=== PATIENT | female | born 1940 | race Caucasian/White ===

== ENCOUNTER 2019-08-11 11:16 | Emergency (ER) | payer MEDICARE ==
[2019-08-11] MEDS ORDERED: IPRATROPIUM/ALBUTEROL 3 ML VIAL NEB ONE ×4 (11:25→12:12)
[2019-08-11] MEDS ORDERED: methylPREDNISolone SODIUM SUC 125 MG/2 ML VIAL IV ONE (11:30)
--- NOTE | 2019-08-11 11:33 | ED.PDOC ---
History of Present Illness - General Chief Complaint: Respiratory Problem Stated Complaint: shortness of breath,chest tightness Time Seen by Provider: 08/11/19 11:30 Source: patient, family Exam Limitations: no limitations - History of Present Illness Initial Comments: 79 yo F with PMH sig for COPD, CAD who presents for SOB, wheezing, chest tightness onset this morning, worsening since. Pt is still a smoker, no home oxygen use. Uses inhaler as needed, today did not have inhaler when sx started. Denies f/c, cough, congestion, CP, abd pain, n/v/d, edema. Allergies/Adverse Reactions: Allergies NO KNOWN ALLERGY Allergy (Verified 08/11/19 11:28) Home Medications: Ambulatory Orders Albuterol Inhaler [Ventolin Hfa Inhaler] 1 puff INH Q4H PRN #1 inh 08/11/19 Albuterol Sulfate Nebs [Proventil Nebs] 2.5 mg INH Q4H PRN #12 vial 08/11/19 Aspirin [Aspirin Adult Low Dose] 81 mg PO DAILY 08/11/19 Atorvastatin Calcium 40 mg PO BEDTIME 08/11/19 Clonidine HCl [Catapres] 0.3 mg PO BID 08/11/19 Clopidogrel Bisulfate [Plavix] 75 mg PO QD 08/11/19 Donepezil Hydrochloride [Donepezil HCl] 10 mg PO BEDTIME 08/11/19 HYDROcodone 10MG/APAP 325MG [Joseph 10/325] 1 tab PO PRN 08/11/19 Levothyroxine Sodium [Synthroid] 100 mcg PO DAILY 08/11/19 Memantine [Namenda] 10 mg PO BID 08/11/19 Multiple Vitamins W/ Minerals [Centrum Silver] 1 tab PO DAILY 08/11/19 Prednisone 60 mg PO DAILY 4 Days tab 08/11/19 Suvorexant [Belsomra] 10 mg PO BEDTIME 08/11/19 amLODIPine BESYLATE [Norvasc] 5 mg PO DAILY 08/11/19 Review of Systems - Review of Systems Constitutional: Denies: chills, fever EENTM: Denies: blurred vision, double vision, ear pain, nose congestion, throat pain Respiratory: States: short of breath, wheezing, other - +chest tightness. Denies: cough, orthopnea, stridor Cardiology: Denies: chest pain, edema, palpitations, syncope Gastrointestinal/Abdominal: Denies: abdominal pain, diarrhea, nausea, vomiting Genitourinary: Denies: dysuria, frequency, hematuria Musculoskeletal: Denies: back pain, neck pain Skin: Denies: lesions, lumps Neurological: Denies: headache, numbness, weakness Endocrine: Denies: increased thirst, increased urine Past Medical History (General) - Patient Medical History Hx Stroke: No Hx of COPD: Yes Hx Cardiac Disorders: Yes - NM Hx Hypertension: Yes Hx Diabetes: No - Vaccination History Hx Influenza Vaccination: No Hx Pneumococcal Vaccination: Yes - Social History Hx Tobacco Use: Yes Family Medical History - Family History Mother Family History: Unknown Living Status: Unknown Physical Exam - Physical Exam General Appearance: Alert, No apparent distress, Well Developed, Well Nourished Eyes, Ears, Nose, Throat Exam: normal ENT inspection Neck: full range of motion, supple Respiratory: no accessory muscle use, wheezing, other - No diminished BS, mild tachypnea. Cardiovascular/Chest: normal peripheral pulses, regular rate, rhythm, no edema, no gallop, no JVD, no murmur Peripheral Pulses: radial,right: 2+, radial,left: 2+ Gastrointestinal/Abdominal: non tender, soft, no organomegaly, no pulsatile mass Extremity: normal range of motion, non-tender, normal inspection, no pedal edema, no calf tenderness, normal capillary refill Neurologic: no motor/sensory deficits, alert, normal mood/affect, oriented x 3 Skin Exam: normal color, warm/dry Progress - Progress Progress: 08/11/19 13:38 Despite three duonebs and one albuterol treatment, pt continues to have end expiratory wheezing, mild tachypnea, oxygenation wnl. Recommended admission, pt declines as her granddaughters wedding is tonight. At this time the patient requested to leave against medical advice. I explained that while they retain the right to leave whenever they choose, I strongly recommend against it. In addition, I explained that they may subject themselves to potentially worsening their condition; progression that may include additional pain, disability, and even could not be excluded. At this time, the patient still requested to leave and subsequently left the department against medical advice. Aixa Fowler MD Emergency Medicine Physician Billing Number [id number] - Results/Orders Results/Orders: Laboratory Results - last 24 hr 08/11/19 08/11/19 08/11/19 11:55 11:55 11:55 WBC 10.8 RBC 3.53 L Hgb 12.1 Hct 35.6 L MCV 100.6 H MCH 34.1 H MCHC 33.9 RDW 13.0 Plt Count 144 MPV 10.7 H Absolute Neuts (auto) 8.10 H Absolute Lymphs (auto) 1.50 Absolute Monos (auto) 1.00 H Absolute Eos (auto) 0.10 Absolute Basos (auto) 0.10 Neutrophils % 75.2 Lymphocytes % 13.8 L Monocytes % 9.2 H Eosinophils % 1.3 Basophils % 0.5 Sodium 139 Potassium 3.9 Chloride 107 Carbon Dioxide 22 Anion Gap 13.9 BUN 22 H Creatinine 1.05 BUN/Creatinine Ratio 21.0 H Random Glucose 120 H Serum Osmolality 282.1 Calcium 10.1 Total Bilirubin 0.7 AST 25 ALT 20 Alkaline Phosphatase 79 Troponin I < 0.02 Serum Total Protein 7.4 Albumin 4.1 Globulin 3.3 Albumin/Globulin Ratio 1.2 CXR: EXAM: Chest,2 Views CLINICAL HISTORY: SOB COMPARISON STUDY: None TECHNICAL: P A and lateral chest x-ray. FINDINGS: The lungs are clear. There is no infiltrate/consolidation. There is no sign of interstitial pulmonary edema. There is no pleural effusion. The heart is not enlarged. There are significant vascular calcifications within the aortic arc. Coronary artery stents are noted. There are degenerative changes of the thoracic spine. IMPRESSION: No acute abnormality. Electronically signed by: Hao Lemus MD 08/11/2019 12:37 PM [facility] Vital Signs - 24 hr 08/11/19 08/11/19 08/11/19 11:25 11:57 12:14 Temperature 98.4 F Pulse Rate 78 Pulse Rate [ 79 81 Left Brachial] Respiratory 22 28 H 24 Rate Blood Pressure 178/78 155/62 [Left Arm] O2 Sat by Pulse 93 L 94 L Oximetry 08/11/19 08/11/19 08/11/19 12:15 13:00 13:08 Temperature Pulse Rate 76 87 Pulse Rate [ 89 Left Brachial] Respiratory 24 20 22 Rate Blood Pressure 128/76 [Left Arm] O2 Sat by Pulse 96 99 94 L Oximetry - EKG/XRAY/CT EKG: no ST T wave changes Comments: NSR, premature atrial complexes, normal axis, normal intervals Departure - Departure Clinical Impression: Acute bronchospasm, COPD with exacerbation Time of Disposition: 13:36 Disposition: Left Against Medical Advice Condition: Fair Departure Forms: ED Discharge - Pt. Copy, Patient Portal Self Enrollment Referrals: BOYD MORIN [Primary Care Provider] - 1-5 Days Prescriptions: Albuterol Inhaler [Ventolin Hfa Inhaler] 1 puff INH Q4H PRN #1 inh PRN Reason: Wheezing Albuterol Sulfate Nebs [Proventil Nebs] 2.5 mg INH Q4H PRN #12 vial PRN Reason: Wheezing Prednisone 60 mg PO DAILY 4 Days tab Home Medications: Ambulatory Orders Albuterol Inhaler [Ventolin Hfa Inhaler] 1 puff INH Q4H PRN #1 inh 08/11/19 Albuterol Sulfate Nebs [Proventil Nebs] 2.5 mg INH Q4H PRN #12 vial 08/11/19 Aspirin [Aspirin Adult Low Dose] 81 mg PO DAILY 08/11/19 Atorvastatin Calcium 40 mg PO BEDTIME 08/11/19 Clonidine HCl [Catapres] 0.3 mg PO BID 08/11/19 Clopidogrel Bisulfate [Plavix] 75 mg PO QD 08/11/19 Donepezil Hydrochloride [Donepezil HCl] 10 mg PO BEDTIME 08/11/19 HYDROcodone 10MG/APAP 325MG [Joseph 10/325] 1 tab PO PRN 08/11/19 Levothyroxine Sodium [Synthroid] 100 mcg PO DAILY 08/11/19 Memantine [Namenda] 10 mg PO BID 08/11/19 Multiple Vitamins W/ Minerals [Centrum Silver] 1 tab PO DAILY 08/11/19 Prednisone 60 mg PO DAILY 4 Days tab 08/11/19 Suvorexant [Belsomra] 10 mg PO BEDTIME 08/11/19 amLODIPine BESYLATE [Norvasc] 5 mg PO DAILY 08/11/19
--- NOTE | 2019-08-11 12:39 | RAD ---
EXAM: Chest,2 Views CLINICAL HISTORY: SOB COMPARISON STUDY: None TECHNICAL: PA and lateral chest x-ray. FINDINGS: The lungs are clear. There is no infiltrate/consolidation. There is no sign of interstitial pulmonary edema. There is no pleural effusion. The heart is not enlarged. There are significant vascular calcifications within the aortic arc. Coronary artery stents are noted. There are degenerative changes of the thoracic spine. IMPRESSION: No acute abnormality. Electronically signed by: Hao Lemus MD 08/11/2019 12:37 PM [facility]
[2019-08-11] MEDS ORDERED: ALBUTEROL SULFATE 2.5 MG/3 ML VIAL NEB ONE (12:54)
[2019-08-11 13:49] VITALS: BP 126/79; TEMP 98.1; O2SAT 95
== END 2019-08-11 13:49 | disposition left against medical advice (07) ==
LOC: ER 11:16
DX: J44.1 Chronic obstructive pulmonary disease with (acute) exacerbation (principal); R07.89 Other chest pain; I25.10 Atherosclerotic heart disease of native coronary artery without angina pectoris; F17.200 Nicotine dependence, unspecified, uncomplicated; I25.2 Old myocardial infarction; I10 Essential (primary) hypertension; Z53.29 Procedure and treatment not carried out because of patient's decision for other reasons; Z79.899 Other long term (current) drug therapy; Z79.82 Long term (current) use of aspirin; Z79.02 Long term (current) use of antithrombotics/antiplatelets
CPT/HCPCS: 71046; 80053; 84484; 85025; 93005; 94640; J2930; J7611; J7620